=== PATIENT | male | born 1995 | race Caucasian/White ===

== ENCOUNTER 2017-04-26 18:55 | Emergency (ER) | payer OTHER ==
[~2017-04-26] VITALS: Ht 170.2 cm; Wt 68.0 kg
[2017-04-26 19:52] LABS: POTASSIUM ISTAT 3.9 mmol/L (3.5-5.0)
--- NOTE | 2017-04-26 20:14 | PHYS DOC ---
Past History Past Medical History: No Pertinent History Past Surgical History: Tonsillectomy, Other Alcohol Use: Occasionally Drug Use: None Adult General Chief Complaint Chief Complaint: RECTAL BLEED [facility] HPI 21-year-old male with no significant past medical history now presents emergency department because of bleeding from his anus. Patient states she noticed bleeding today. He does not a history of anemia or coagulopathy. He does not take any blood thinners. Patient states he does have soreness at his anus but is never had a history of hemorrhoids or fissure or other addition causing bleeding. No black or bloody stool. He describes it's making a blood spot on his underwear Review of Systems Review of Systems Constitutional: Denies fever or chills [] Eyes: Denies change in visual acuity, redness, or eye pain [] HENT: Denies nasal congestion or sore throat [] Respiratory: Denies cough or shortness of breath [] Cardiovascular: No additional information not addressed in HPI [] GI: Denies abdominal pain, nausea, vomiting, bloody stools or diarrhea [] : Denies dysuria or hematuria [] Musculoskeletal: Denies back pain or joint pain [] Integument: Denies rash or skin lesions [] Neurologic: Denies headache, focal weakness or sensory changes [] Endocrine: Denies polyuria or polydipsia [] Allergies Allergies Allergies Coded Allergies Type Severity Reaction Last Updated Verified nickel Allergy Intermediate 09/29/15 Yes Physical Exam Physical Exam Well-appearing patient no pallor benign exam benign abdomen and pelvis no CVA tenderness. Anus with small 1 cm x 0.75 cm hemorrhoid at 8:00 distribution with a clearly identifiable bleeding site which is actively oozing. No thrombosis. No fluctuance or crepitus and no surrounding anal tenderness. No other mass or bleeding Constitutional: Well developed, well nourished, no acute distress, non-toxic appearance. [] HENT: Normocephalic, atraumatic, bilateral external ears normal, oropharynx moist, no oral exudates, nose normal. []No pallor Eyes: PERRLA, EOMI, conjunctiva normal, no discharge. [] Neck: Normal range of motion, no tenderness, supple, no stridor. [] Cardiovascular:Heart rate regular rhythm, no murmur [] Lungs & Thorax: Bilateral breath sounds clear to auscultation [] Abdomen: Bowel sounds normal, soft, no tenderness, no masses, no pulsatile masses. [] Skin: Warm, dry, no erythema, no rash. [] Back: No tenderness, no CVA tenderness. [] Extremities: No tenderness, no cyanosis, no clubbing, ROM intact, no edema. [] Neurologic: Alert and oriented X 3, normal motor function, normal sensory function, no focal deficits noted. [] Psychologic: Affect normal, judgement normal, mood normal. [] Current Patient Data Lab Results Laboratory Tests Test 04/26/17 19:42 POC Hemoglobin 16.0 gm/dL POC Hematocrit 47 % POC Sodium 141 mmol/L (135-145) POC Potassium 3.9 mmol/L (3.5-5.0) POC Chloride 102 mmol/L (98-110) POC Total CO2 27 mmol/L (23-32) Anion Gap 16 mmol/L (6-14) H POC Blood Urea Nitrogen 20 mg/dL (8-26) POC Creatinine 1.1 mg/dL (0.5-1.4) Glucose Level 89 mg/dL (60-99) POC Ionized Calcium (Tia) 1.18 mmol/L (1.13-1.32) EKG EKG [] Radiology/Procedures Radiology/Procedures [] Course & Med Decision Making Course & Med Decision Making Pertinent Labs and Imaging studies reviewed. (See chart for details) Signs and symptoms consistent with small bleeding hemorrhoid a new diagnosis for patient. Globin is 16. No further workup treatment is indicated. Patient were to use [id number] treatments for hemorrhoid as well as an adult garment as needed for blood oozing. He will follow-up with his primary care doctor and return immediately for new severe worsening symptoms specifically uncontrolled bleeding. [] Dragon Disclaimer Dragon Disclaimer This chart was dictated in whole or in part using Voice Recognition software in a busy, high-work load, and often noisy Emergency Department environment. It may contain unintended and wholly unrecognized errors or omissions. Departure Departure: Impression: Primary Impression: Hemorrhoid Additional Impressions: Bleeding hemorrhoid Hypertension Disposition: HOME, SELF-CARE Condition: GOOD Referrals: NON,STAFF (PCP) Patient Instructions: Hemorrhoids Additional Instructions: You have an oozing hemorrhoid. Wear a feminine napkin in your gluteal crack or an adult garment to avoid having bloodstains on your closed. Use over-the- counter treatments for hemorrhoid including Tucks pads as needed. Your hemoglobin is 16 today which is very normal. Follow-up with your doctor in 2-3 days for reevaluation and to discuss further treatment and [id number]-agpzons therapies as needed. Return immediately for new severe worsening symptoms specifically for uncontrolled bleeding. As we discussed her blood pressure was mildly elevated today. Follow-up with your doctor for recheck to determine if your evolving essential hypertension which would require treatment. Problem Qualifiers GERSON ROSADO MD Apr 26, 2017 20:14
[2017-04-26 20:20] VITALS: BP 130/82
== END 2017-04-26 20:22 | disposition home or self-care (01) ==
LOC: ER 18:55
DX: K64.9 Unspecified hemorrhoids (principal); I10 Essential (primary) hypertension; Z88.8 Allergy status to other drugs, medicaments and biological substances
CPT/HCPCS: 36415; 80047; 85014; 85018; 99282

== ENCOUNTER 2017-06-06 20:14 | Emergency (ER) | payer OTHER ==
[~2017-06-06] VITALS: Ht 170.2 cm; Wt 67.1 kg
[2017-06-06 20:20] VITALS: BP 110/68
--- NOTE | 2017-06-06 20:54 | PHYS DOC ---
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 Patient states that he awoke this morning with an itchy rash over his trunk and upper extremities and face. He cannot think of any new known exposures, he's tried hot and cold showers as well as by mouth Benadryl last taken at 1300 without any relief. He denies any face or throat swelling, no cough hoarseness feeling of lump in throat dyspnea or wheezing. His vital signs are stable and he is in no apparent distress. Timing/Duration: 24 hours Severity: moderate Modifying Factors: improves with cold therapy Associated Symptoms: rash Allergies: Coded Allergies: nickel (Verified Allergy, Intermediate, 09/29/15) Past Medical History Medical History: no pertinent history Surgical History: noncontributory Social History Smoker: cigarettes Alcohol: none Drugs: none Review of Systems Constitutional: denies chills, denies fever, denies malaise EENTM: denies throat swelling, denies mouth swelling Respiratory: denies cough, denies shortness of breath, denies stridor, denies wheezing Cardiovascular: denies chest pain, denies palpitations, denies syncope Gastrointestinal: denies abdominal pain, denies nausea, denies vomiting Musculoskeletal: denies back pain, denies joint swelling, denies neck pain Skin: rash Psychiatric/Neurological: denies headache, denies numbness, denies paresthesia Immunological/Allergic: see HPI Physical Exam General Appearance: WD/WN, no apparent distress Eyes: bilateral eye normal inspection, bilateral eye PERRL, bilateral eye EOMI Ear, Nose, Throat: hearing grossly normal, normal ENT inspection (no throat or face swelling), normal pharynx Neck: non-tender, supple Respiratory: normal breath sounds, no respiratory distress Cardiovascular: normal peripheral pulses, regular rate, rhythm Back: no CVA tenderness, no vertebral tenderness Extremities: non-tender, normal inspection 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 Solu-Medrol 125 mg intramuscularly and prednisone 20 mg by mouth given in the emergency department. I discussed signs and symptoms to monitor as well as indications for urgent return to the department. I discussed lyjs-dvo-pachlvg prescription medications and the patient's questions were answered to his satisfaction. He expressed agreement and understanding with the treatment plan. Departure Time of Disposition: 20:53 Disposition: 01 HOME, SELF-CARE Diagnosis: allergic reaction Condition: STABLE Patient Instructions: Allergy Tests Additional Instructions: Continue to try to identify any new exposures and discontinue them. Remain in a cool temperature environment for optimal symptom control. Take [id number] Pepcid and Benadryl while taking prednisone. Prescription: Prednisone 20 mg take as directed Follow-up on Post in 1-2 days for recheck. Work excuse for tomorrow if needed. Return to ED with new or changing symptoms. GIANLUCA HERNANDEZ DO Jun 06, 2017 20:54
[2017-06-06] MEDS ORDERED: PRED20TA PO (20:55)
[2017-06-06] MEDS ORDERED: predniSONE 20 MG TABLET PO ONE (21:30)
[2017-06-06] MEDS ORDERED: methylPREDNISolone SOD SUCC PF 125 MG/2 ML VIAL. IM ONE (21:30)
== END 2017-06-06 21:10 | disposition home or self-care (01) ==
LOC: ER 20:14
DX: T78.40XA Allergy, unspecified, initial encounter (principal); F17.210 Nicotine dependence, cigarettes, uncomplicated; Z88.8 Allergy status to other drugs, medicaments and biological substances; X58.XXXA Exposure to other specified factors, initial encounter
CPT/HCPCS: 96372; 99283; J2930; J7512

== ENCOUNTER 2020-09-08 14:21 | Emergency (ER) | payer OTHER ==
[~2020-09-08] VITALS: Ht 170.2 cm; Wt 67.1 kg
[~2020-09-08 14:21] MED LIST: PRED20TA PO
[2020-09-08] MEDS ORDERED: DEXAMETHASONE SOD PHOS 10 MG/ML VIAL. PO ONE (14:45)
[2020-09-08] MEDS ORDERED: ORPHENADRINE CITRATE 60 MG/2 ML VIAL. IM ONE (14:45)
[2020-09-08] MEDS ORDERED: KETOROLAC 60 MG/2 ML VIAL. IM ONE (14:45)
--- NOTE | 2020-09-08 14:57 | PHYS DOC ---
Past History Past Medical History: No Pertinent History (ADDIE SANDOVAL APRN) Past Surgical History: Knee Replacement, Other (ADDIE SANDOVAL APRN) Alcohol Use: Occasionally Drug Use: None (ADDIE SANDOVAL APRN) Adult General Chief Complaint Chief Complaint: BACK PAIN OR [facility] HPI Patient is a 24 year old male who presents with states for the last 2 weeks intermittently and now becoming continuous is having thoracic focal bony spinal sharp shooting pain down into the lumbar and then down to his bilateral legs. He states it is worse with movement. He states that he is active and does do heavy lifting. He states that when he stands he has got numbness in his legs and when he sits or lays down it is more of a tingly type feeling. He states that he does feel like he has been peeing more than usual recently. He states that the other day he thought he was going to urinate on himself. He denies losing his bowel on himself. Currently rating his pain a 9 out of 10 he states has been taking Tylenol and NSAIDs to help with his pain. He states he does not remember a certain day that he did something to injure it. He states he has not done anything out of the usual. He has had a knee replacement in the past. (ADDIE SANDOVAL APRN) Review of Systems Review of Systems Constitutional: Denies fever or chills [] Eyes: Denies change in visual acuity, redness, or eye pain [] HENT: Denies nasal congestion or sore throat [] Respiratory: Denies cough or shortness of breath [] Cardiovascular: No additional information not addressed in HPI [] GI: Denies abdominal pain, nausea, vomiting, bloody stools or diarrhea [] : Denies dysuria or hematuria [] Musculoskeletal: +Thoracic down to lumbar back pain and sharp shooting down legs or denies joint pain [] Integument: Denies rash or skin lesions [] Neurologic: Denies headache, focal weakness. + Numbness and tingling in the legs sensory changes [] Endocrine: + polyuria or denies polydipsia [] All other systems were reviewed and found to be within normal limits, except as documented in this note. (ADDIE SANDOVAL APRN) Current Medications Current Medications Current Medications Medications (Trade) Dose Ordered Sig/Brisa Start Time Stop Time Status Last Admin Dose Admin Dexamethasone Sodium Phosphate (Decadron) 10 mg 1X ONCE 09/08/20 14:45 09/08/20 14:46 DC Ketorolac Tromethamine (Toradol Im) 60 mg 1X ONCE 09/08/20 14:45 09/08/20 14:46 DC Orphenadrine Citrate (Norflex) 60 mg 1X ONCE 09/08/20 14:45 09/08/20 14:46 DC [facility] [employer]N[employer]) Allergies Allergies Allergies Coded Allergies Type Severity Reaction Last Updated Verified nickel Allergy Intermediate 09/29/15 Yes (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 [] HENT: Normocephalic, atraumatic, bilateral external ears normal, oropharynx moist, no oral exudates, nose normal. [] Eyes: PERRLA, EOMI, conjunctiva normal, no discharge. [] Neck: Normal range of motion, no tenderness, supple, no stridor. [] Cardiovascular:Heart rate regular rhythm, no murmur [] Lungs & Thorax: Bilateral breath sounds clear to auscultation [] Abdomen: Bowel sounds normal, soft, no tenderness, no masses, no pulsatile masses. [] Skin: Warm, dry, no erythema, no rash. [] Back: Lower thoracic down through lumbar tenderness, no CVA tenderness. [] Extremities: No tenderness, no cyanosis, no clubbing, ROM intact, no edema. [] Neurologic: Alert and oriented X 3, normal motor function, normal sensory function, no focal deficits noted. Lessened sensation of touch to bilateral legs [] Psychologic: Affect normal, judgement normal, mood normal. [] ([facility]) Current Patient Data Vital Signs Vital Signs Date Time Temp Pulse Resp B/P (MAP) Pulse Ox O2 Delivery O2 Flow Rate FiO2 09/08/20 14:36 98.1 83 16 123/75 (91) 100 Room Air ([facility]) EKG EKG [] [facility] Radiology/Procedures Radiology/Procedures [] Impressions: [address] [id number] IMAGING REPORT Signed PATIENT: DORIAN CAROLINA ACCOUNT: [id number] : 1995 LOCATION: ER AGE: 24 SEX: M EXAM STATUS: REG ER ORD. PHYSICIAN: ADDIE SANDOVAL APRN REASON: focal spinal pain, numbness tingling PROCEDURE: CT THORACIC SPINE WO CONTRAST EXAM: 1. CT thoracic spine without contrast. 2. CT lumbar spine without contrast. HISTORY: Spinal pain, numbness and tingling. TECHNIQUE: CT of the thoracic and lumbar spine was performed without intravenous contrast. One or more of the following individualized dose reduction techniques were utilized for this examination: 1. Automated exposure control. 2. Adjustment of the mA and/or kV according to patient size. 3. Use of iterative reconstruction technique. COMPARISON: None. FINDINGS: The alignment of the thoracic spine is normal. Vertebral body heights are maintained, and no fractures are identified. Intervertebral disc heights are maintained. There is no central canal stenosis or neural foraminal stenosis. The alignment of the lumbar spine is normal. Vertebral body heights are maintained, and no fractures are identified. Intervertebral disc heights are maintained. There appears to be a small central inferior extrusion at L5-S1. There is no associated stenosis. Small posterior disc bulges from L3 through L5 do not result in significant stenosis. IMPRESSION: 1. No fracture or malalignment. 2. A small central disc protrusion at L5-S1 does not result in stenosis. Electronically signed by: Tatyana Fletcher MD (09/08/2020 3:43 PM) [facility] DICTATED AND SIGNED BY: NISHANT FLETCHER MD DATE: 09/08/20 1513 CC: ADDIE SANDOVAL APRN; PCP,NO ~MTH0 0 (ADDIE SANDOVAL APRN) Heart Score C/O Chest Pain: No Risk Factors: Risk Factors: DM, Current or recent (<one month) smoker, HTN, HLP, family history of CAD, obesity. Risk Scores: Risk Factors: DM, Current or recent (<one month) smoker, HTN, HLP, family history of CAD, obesity. (ADDIE SANDOVAL APRN) Course & Med Decision Making Course & Med Decision Making Pertinent Labs and Imaging studies reviewed. (See chart for details) See HPI. Does not seem to have any saddle paresthesias. Ambulatory with a steady gait. Speaks in full complete sentences. Is moving all extremities equally with equal strengths. No extremity edema. No extremity deformities. Focal bony spinal tenderness to lower thoracic through lumbar. Skin Leal warm and dry. Alert and oriented x4. Rectal tone intact. Patient is given dexamethasone, Toradol, Norflex in the ED. [] (ADDIE SANDOVAL APRN) Course & Med Decision Making I oversaw on the above date of service of this patient and discussed the care with the DIRECTOR ACUTE. I agree with the findings, plan of care, and disposition as documented. No emergent need for neurosurgery consultation but extremely close outpatient follow-up was advised Electronically signed, Christin Rodriguez DO (CHRISTIN RODRIGUEZ DO) Sarita Disclaimer Dragon Disclaimer This electronic medical record was generated, in whole or in part, using a voice recognition dictation system. (ADDIE SANDOVAL APRN) Departure Departure: Impression: Primary Impression: Back pain Additional Impression: Sciatic leg pain Disposition: 01 DC HOME SELF CARE/HOMELESS Condition: STABLE Referrals: PCPSANDEE (PCP) Patient Instructions: Back Pain, Adult, Sciatica with Rehab-SportsMed Additional Instructions: Follow-up with your primary care provider if needed. Try not to lift anything and rest your back for the next 5 days. If you lose your bowel or bladder you need to come to the emergency room. Take medication as prescribed with food. Try vxbv-vvp-avlptjx pain patches with lidocaine for aggravated nerves. Scripts Hydrocodone Bit/Acetaminophen (HYDROCODONE-APAP 5-325 ) 1 Each Tablet 1 TAB PO PRN Q6HRS PRN for PAIN, #10 TAB 0 Refills Prov: ADDIE SANDOVAL APRN 09/08/20 Methylprednisolone (MEDROL) 4 Mg Tab.ds.pk 1 PKG PO UD, #1 PKG Start tomorrow 09/09 Prov: ADDIE SANDOVAL APRN 09/08/20 Ibuprofen (IBUPROFEN) 800 Mg Tablet 1 TAB PO TID PRN for PAIN, #30 TAB Prov: ADDIE SANDOVAL APRN 09/08/20 Problem Qualifiers Primary Impression: Back pain Back pain location: low back pain Chronicity: acute Back pain laterality: midline Sciatica presence: with sciatica Sciatica laterality: bilateral sciatica Qualified Codes: M54.42 - Lumbago with sciatica, left side; M54.41 - Lumbago with sciatica, right side ADDIE SANDOVAL APRN Sep 08, 2020 14:57 CHRISTIN RODRIGUEZ DO Sep 09, 2020 06:51
[2020-09-08 15:44] LABS: BILIRUBIN,URINE NEG (NEG); CLARITY,URINE CLEAR; COLOR,URINE YELLOW; GLUCOSE,URINE NEG (NEG); NITRITE,URINE NEG (NEG); UROBILINOGEN,URINE 0.2 mg/dL (0.2 mg/dL)
[2020-09-08 15:45] LABS: BACTERIA,URINE 0 /HPF (0-FEW); RBC,URINE RARE /HPF (0-2); WBC,URINE 0 /HPF (0-4)
--- NOTE | 2020-09-08 15:46 | RAD ---
EXAM: 1. CT thoracic spine without contrast. 2. CT lumbar spine without contrast. HISTORY: Spinal pain, numbness and tingling. TECHNIQUE: CT of the thoracic and lumbar spine was performed without intravenous contrast. One or mor e of the following individualized dose reduction techniques were utilized for this examination: 1. Automated exposure control. 2. Adjustment of the mA and/or kV according to patient size. 3. Use of iterative reconstruction technique. COMPARISON: None. FINDINGS: The alignment of the thoracic spine is normal. Vertebral body heights are maintained, and n o fractures are identified. Intervertebral disc heights are maintained. There is no central canal corina nosis or neural foraminal stenosis. The alignment of the lumbar spine is normal. Vertebral body heights are maintained, and no fractures are identified. Intervertebral disc heights are maintained. There appears to be a small central inferior extrusion at L5-S1. There is no associated stenosis. Sma ll posterior disc bulges from L3 through L5 do not result in significant stenosis. IMPRESSION: 1. No fracture or malalignment. 2. A small central disc protrusion at L5-S1 does not result in stenosis. Electronically signed by: Tatyana Fletcher MD (09/08/2020 3:43 PM) [facility]
[2020-09-08] MEDS ORDERED: IBUP800T19 PO (16:01)
[2020-09-08] MEDS ORDERED: METH4TAB2 PO (16:01)
[2020-09-08] MEDS ORDERED: HYDR-2155 PO (16:01)
[2020-09-08 16:14] VITALS: BP 111/72
== END 2020-09-08 16:14 | disposition home or self-care (01) ==
LOC: ER 14:21
DX: M54.41 Lumbago with sciatica, right side (principal); M54.42 Lumbago with sciatica, left side; M54.6 Pain in thoracic spine; Z88.8 Allergy status to other drugs, medicaments and biological substances
CPT/HCPCS: 72128; 72131; 81001; 96372; 99285; J1100; J1885; J2360; 99284